=== PATIENT | male | born 1975 | race Two or more races ===

== ENCOUNTER 2024-07-23 11:11 | Emergency (ER) | payer OTHER ==
[~2024-07-23] VITALS: Ht 167.6 cm; Wt 72.6 kg
[2024-07-23 11:16] VITALS: TEMP 97.6
[2024-07-23] MEDS ORDERED: LIDOCAINE 1%-EPI 1:100,000 20 ML VIAL ONE (11:28)
[2024-07-23] MEDS ORDERED: LIDOCAINE 1% INJ 50 ML MDV IJ ONE (11:46)
[2024-07-23] MEDS ORDERED: ACETAMINOPHEN ES 500 MG TABLET ONE (11:47)
[2024-07-23] MEDS ORDERED: TDAP [DIPH/PERTUSSIS/TET] 0.5 ML VIAL IM ONE (11:49)
[2024-07-23] MEDS: ACETAMINOPHEN ES 500 MG TABLET PO ONE (11:55)
[2024-07-23] MEDS: TDAP [DIPH/PERTUSSIS/TET] 0.5 ML VIAL IM ONE (11:55)
[2024-07-23] MEDS: LIDOCAINE 1%-EPI 1:100,000 50 ML VIAL IJ ONE (11:55)
[2024-07-23] MEDS ORDERED: HYDR-4209 PO (13:03)
[2024-07-23 15:50] VITALS: BP 135/80; O2SAT 98
== END 2024-07-23 13:04 | disposition home or self-care (01) ==
LOC: ER 11:13
DX: S01.01XA Laceration without foreign body of scalp, initial encounter (principal); R51.9 Headache, unspecified; W22.8XXA Striking against or struck by other objects, initial encounter; Y93.89 Activity, other specified; Y92.89 Other specified places as the place of occurrence of the external cause; Y99.8 Other external cause status
CPT/HCPCS: 12002; 70450; 90471; 90715; 99285; A6403; J3490